=== PATIENT | female | born 1995 | race Caucasian/White ===

== ENCOUNTER 2017-01-05 14:27 | Emergency (ER) | payer OTHER ==
[2017-01-05 14:32] VITALS: BP 150/91
--- NOTE | 2017-01-05 15:17 | ER Document Report ---
ED Medical Screen (RME) - General Chief Complaint: Vaginal Bleeding Stated Complaint: VAGINAL BLEEDING Time Seen by Provider: 01/05/17 15:16 Information source: Patient Notes: G1 6 weeks by dates who presents with some vaginal bleeding and lower abdominal cramping this morning. No flank pain, fevers, dysuria, or vomiting. TRAVEL OUTSIDE OF THE [place] IN LAST 30 DAYS: No - Related Data Allergies/Adverse Reactions: acetaminophen [From Tylenol] Allergy (Verified 01/05/17 14:30) pamabrom [From Midol] Allergy (Verified 01/05/17 14:30) Penicillins Allergy (Verified 01/05/17 14:30) Past Medical History Renal/ Medical History: Denies: Hx Peritoneal Dialysis Physical Exam - Vital signs Vitals: Temp Pulse Resp BP Pulse Ox 97.9 F 70 14 150/91 H 97 01/05/17 14:31 01/05/17 14:31 01/05/17 14:31 01/05/17 14:31 01/05/17 14:31 Course - Vital Signs Vital signs: Temp Pulse Resp BP Pulse Ox 97.9 F 70 14 150/91 H 97 01/05/17 14:31 01/05/17 14:31 01/05/17 14:31 01/05/17 14:31 01/05/17 14:31
[2017-01-05 15:43] LABS: ABSOLUTE BASOPHILS # (AUTO) 0.1 10^3/uL (0.0-0.2); ABSOLUTE EOSINOPHILS # (AUTO) 0.1 10^3/uL (0.0-0.6); ABSOLUTE LYMPHOCYTES (AUTO) 3.1 10^3/uL (0.5-4.7); ABSOLUTE MONOCYTES (AUTO) 0.7 10^3/uL (0.1-1.4); BASOPHILS % (AUTO) 0.5 % (0-2); EOSINOPHILS % (AUTO) 1.1 % (0-6); HEMOGLOBIN 13.2 g/dL (12.0-15.5); HGB HCT DIFFERENCE -0.4; LYMPHOCYTES % (AUTO) 28.2 % (13-45); MEAN CORPUSCULAR HEMOGLOBIN 29.7 pg (27.0-33.4); MEAN CORPUSCULAR VOLUME 90 fl (80-97); MONOCYTES % (AUTO) 6.6 % (3-13); RED BLOOD COUNT 4.44 10^6/uL (3.72-5.28); RED CELL DISTRIBUTION WIDTH 13.2 % (11.5-14.0); SEGMENTED NEUTROPHILS % (AUTO) 63.6 % (42-78)
[2017-01-05 16:00] LABS: ANION GAP 12 (5-19); BLOOD UREA NITROGEN 14 mg/dL (7-20); CALCIUM 10.2 mg/dL (8.4-10.2); CARBON DIOXIDE 26 mmol/L (22-30); CHLORIDE 105 mmol/L (98-107); CREATININE RESULT 0.96 mg/dL (0.52-1.25); GLUCOSE 81 mg/dL (75-110); POTASSIUM 3.8 mmol/L (3.6-5.0); SODIUM 143.3 mmol/L (137-145)
[2017-01-05 16:47] LABS: APPEARANCE,URINE CLEAR; BILIRUBIN,URINE NEGATIVE (NEGATIVE); GLUCOSE, URINE NEGATIVE (NEGATIVE); KETONES,URINE NEGATIVE (NEGATIVE); LEUKOCYTE ESTERASE,URINE NEGATIVE (NEGATIVE); NITRITE,URINE NEGATIVE (NEGATIVE); PROTEIN,URINE NEGATIVE (NEGATIVE); URINE SPECIFIC GRAVITY 1.006; UROBILINOGEN,URINE NEGATIVE mg/dL (<2.0)
--- NOTE | 2017-01-05 16:56 | ER Document Report ---
ED GI/ - General Chief Complaint: Vaginal Bleeding Stated Complaint: VAGINAL BLEEDING Time Seen by Provider: 01/05/17 15:16 Information source: Patient TRAVEL OUTSIDE OF THE [place] IN LAST 30 DAYS: No - HPI Notes: 01/05/17 16:51 21-year-old female presents with some vaginal bleeding and lower abdominal cramping this morning. No flank pain, fevers, dysuria, or vomiting. Believes she is approximately 6 weeks with her last menses being very light about 4 weeks ago and more normal before that. She reports 3 positive tests that were done 3 weeks ago but none since then. She had some tenderness of the breasts as well. She has been off her control for a couple of months. She has had no prior pregnancies. Denies fever or dysuria. Bleeding has been spotting at most.. 01/05/17 16:56 - Related Data Allergies/Adverse Reactions: acetaminophen [From Tylenol] Allergy (Verified 01/05/17 14:30) pamabrom [From Midol] Allergy (Verified 01/05/17 14:30) Penicillins Allergy (Verified 01/05/17 14:30) Past Medical History - General Information source: Patient - Social History Smoking Status: Never Smoker Chew tobacco use (# tins/day): No Frequency of alcohol use: None Drug Abuse: None Family History: Reviewed & Not Pertinent Patient has suicidal ideation: No Patient has homicidal ideation: No - Past Medical History Cardiac Medical History: Reports: Hx Hypertension Renal/ Medical History: Denies: Hx Peritoneal Dialysis Review of Systems - Review of Systems -: Yes All other systems reviewed and negative Physical Exam - Vital signs Vitals: Temp Pulse Resp BP Pulse Ox 97.9 F 70 14 150/91 H 97 01/05/17 14:31 01/05/17 14:31 01/05/17 14:31 01/05/17 14:31 01/05/17 14:31 - Notes Notes: GENERAL: VS as per nursing doc. Well-appearing, well-nourished and in no acute distress. HEAD: Atraumatic, normocephalic. EYES: sclera anicteric, no conjunctival injection or discharge. ENT: Moist mucous membranes. NECK: Supple LUNGS: Breath sounds clear to auscultation bilaterally and equal. No wheezes rales or rhonchi. HEART: Regular rate and rhythm without murmurs. ABDOMEN: Soft, non-tender PSYCH: Normal mood, normal affect. Course - Re-evaluation Re-evalutation: 01/05/17 16:59 I discussed with the patient considerations. One was that her last menses was actually her miscarriage. She has no hCG present on a quantitative test today. She is asymptomatic. She will follow up with her primary care physician. - Vital Signs Vital signs: Temp Pulse Resp BP Pulse Ox 97.9 F 70 14 150/91 H 97 01/05/17 14:31 01/05/17 14:31 01/05/17 14:31 01/05/17 14:31 01/05/17 14:31 - Laboratory Result Diagrams: 01/05/17 15:29 01/05/17 15:29 Laboratory results interpreted by me: 01/05/17 01/05/17 15:29 15:29 WBC 11.0 H Urine Blood SMALL H Discharge - Discharge Clinical Impression: Vaginal bleeding Condition: Good Disposition: HOME, SELF-CARE Admitting Provider: Your PCP Additional Instructions: Return for any problems or concerns. Follow-up with your primary care physician Forms: Elevated Blood Pressure
== END 2017-01-05 17:28 | disposition home or self-care (01) ==
LOC: ER 14:27
DX: N93.9 Abnormal uterine and vaginal bleeding, unspecified (principal); N64.59 Other signs and symptoms in breast; R10.30 Lower abdominal pain, unspecified; I10 Essential (primary) hypertension; Z32.02 Encounter for pregnancy test, result negative; Z88.6 Allergy status to analgesic agent; Z88.0 Allergy status to penicillin; Z88.8 Allergy status to other drugs, medicaments and biological substances
CPT/HCPCS: 36415; 80048; 81001; 81025; 84702; 85025; 86900; 86901; 99284